=== PATIENT | female | born 1990 | race Two or more races ===

== ENCOUNTER 2018-08-10 04:05 | Inpatient (IN) | payer OTHER ==
[~2018-08-10] VITALS: Ht 165.1 cm; Wt 95.3 kg
== END 2018-08-13 13:27 | DRG 787 ==
LOC: LDR 04:05 → OB/GYN 04:05 → O/R 14:41 → OB/GYN 16:12
PROVIDERS: ADMIT Obstetrics & Gynecology Obstetrics
PROC: 30233N1 Transfusion of Nonautologous Red Blood Cells into Peripheral Vein, Percutaneous Approach (ICD-10-PCS; 2018-08-10)
PROC: 4A1HXCZ Monitoring of Products of Conception, Cardiac Rate, External Approach (ICD-10-PCS; 2018-08-10)
PROC: 10D00Z1 Extraction of Products of Conception, Low, Open Approach (ICD-10-PCS; principal; 2018-08-10 13:00)
DX: O62.0 Primary inadequate contractions (principal); D62 Acute posthemorrhagic anemia; O90.81 Anemia of the puerperium; Z37.0 Single live birth; Z3A.37 37 weeks gestation of pregnancy; Z22.330 Carrier of Group B streptococcus